=== PATIENT | male | born 1960 | race Caucasian/White ===

== ENCOUNTER 2016-07-08 15:07 | Emergency (ER) | payer MEDICAID, MEDICARE ==
[~2016-07-08] VITALS: Ht 180.3 cm; Wt 81.6 kg
--- NOTE | 2016-07-08 15:18 | EKG ---
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
--- NOTE | 2016-07-08 15:50 | PHYS DOC ---
Past History Past Medical History: Anxiety, Other Past Surgical History: Other Alcohol Use: None Drug Use: None Adult General Chief Complaint Chief Complaint: CHEST PAIN HPI HPI 55-year-old gentleman presenting to the emergency department after having chest pain this started last night. He had chest pain after using meth yesterday. He denies use of cocaine. His pain is a sharp pain that is worse with deep inspiration and radiates to both arms into his neck. He has a history of having a cardiac catheterization approximately 3 years ago that he reported no balloon or stenting. It is mild to moderate and without alleviating factors. He denies unilateral leg swelling personal or family history blood clotting disorders hemoptysis recent immobilization or surgery. He denies fevers chills or cough. Review of systems is negative for nausea vomiting diaphoresis. All other review of systems is negative unless otherwise noted in history of present illness. Review of Systems Review of Systems SEE ABOVE. Current Medications Current Medications Current Medications Medications (Trade) Dose Ordered Sig/Jodie Start Time Stop Time Status Last Admin Dose Admin Aspirin (Children'S Aspirin) 324 mg 1X ONCE 07/08/16 16:00 07/08/16 16:01 Lorazepam (Ativan) 1 mg 1X ONCE 07/08/16 16:00 07/08/16 16:01 Ondansetron HCl (Zofran) 4 mg 1X ONCE 07/08/16 16:00 07/08/16 16:01 Allergies Allergies Allergies Coded Allergies Type Severity Reaction Last Updated Verified No Known Drug Allergies 07/08/16 No Physical Exam Physical Exam Constitutional: Well developed, well nourished, no acute distress, non-toxic appearance. HENT: Normocephalic, atraumatic, bilateral external ears normal, oropharynx moist, no oral exudates, nose normal. Eyes: PERRLA, EOMI, conjunctiva normal, no discharge. [] Neck: Normal range of motion, no tenderness, supple, no stridor. Cardiovascular:Heart rate regular rhythm, no murmur Lungs & Thorax: Bilateral breath sounds clear to auscultation [] Abdomen: Bowel sounds normal, soft, no tenderness, no masses, no pulsatile masses. Skin: Warm, dry, no erythema, no rash. [] Back: No tenderness, no CVA tenderness. Extremities: No tenderness, no cyanosis, no clubbing, ROM intact, no edema. Neurologic: Alert and oriented X 3, normal motor function, normal sensory function, no focal deficits noted. [] Psychologic: Affect normal, judgement normal, mood normal. [] EKG EKG EKG shows sinus rhythm with a tachycardic rate. His heart rate improved after approximately 10-15 minutes without any intervention down to the mid 80s. Otherwise ST segments are congruent. Not suggestive of ischemia. [] Radiology/Procedures Radiology/Procedures [] Course & Med Decision Making Course & Med Decision Making Pertinent Labs and Imaging studies reviewed. (See chart for details) [] 55-year-old male presenting to the emergency department today with chest pain. Vital signs initially he was mildly tachycardic which improved without intervention. Otherwise unremarkable saturating well. EKG unremarkable. Chest x- ray obtained. Blood work obtained. On reexamination the patient's symptoms had improved significantly. troponin neg. pain present for greater than 6 hours. pain is improved now. The patient was then discharged home in stable condition to follow up with their primary care physician over the next 2-3 days. They were to return if their symptoms worsened or if they were concerned for any reason. [id number] discharge instructions and return precautions were given. Patient's questions were answered to their satisfaction. Patient is comfortable plan. heart score 2. Dragon Disclaimer Dragon Disclaimer This chart was dictated in whole or in part using Voice Recognition software in a busy, high-work load, and often noisy Emergency Department environment. It may contain unintended and wholly unrecognized errors or omissions. Departure Departure: Impression: Primary Impression: Chest pain Additional Impression: Substance abuse Referrals: PCP,NO (PCP) MAYRA QUIJANO MD Patient Instructions: Chest Pain (Nonspecific), Substance Abuse-Brief Additional Instructions: Thank you for allowing us to participate in your care today. Followup with your primary care physician in 3 days if your symptoms do not improve. If you do not have a primary care provider you can ask for a list of our primary care providers. Return to the emergency department you have any new or concerning findings. This should be evaluated by the primary care physician and any necessary consulting services for continued management within a few days after discharge. Return to emergency room if you have any new or concerning symptoms including but not limited to fever, chills, nausea, vomiting, intractable pain, any new rashes, chest pain, shortness of air, uncontrolled bleeding, difficulty breathing, and/or vision loss. Problem Qualifiers DAOLFO NICHOLE MD July 08, 2016 15:50
[2016-07-08 15:51] LABS: BASO # 0.1 x10^3/uL (0.0-0.2); BASO % 1 % (0-3); EOS # 0.3 x10^3/uL (0.0-0.7); EOS % 3 % (0-3); HEMATOCRIT 47.2 % (39.0-53.0); LYMPH # 2.7 x10^3/uL (1.0-4.8); LYMPH % 24 % (24-48); MEAN CORPUSCULAR HEMOGLOBIN 30 pg (25-35); MEAN CORPUSCULAR HGB CONC 34 g/dL (31-37); MEAN CORPUSCULAR VOLUME 88 fL (79-100); MONO # 0.7 x10^3/uL (0.0-1.1); MONO % 7 % (0-9); NEUT # 7.6 x10^3uL (1.8-7.7); NEUT % 66 % (31-73); PLATELET COUNT 308 x10^3/uL (140-400); RED BLOOD COUNT 5.36 x10^6/uL (4.30-5.70); RED CELL DISTRIBUTION WIDTH 13.2 % (11.5-14.5); WHITE BLOOD COUNT 11.5 x10^3/uL (4.0-11.0)
[2016-07-08] MEDS ORDERED: ASPIRIN 81 MG TAB.CHEW PO ONE (16:00)
[2016-07-08] MEDS ORDERED: LORazepam 1 MG TABLET PO ONE (16:00)
[2016-07-08] MEDS ORDERED: ONDANSETRON PF 4 MG/2 ML VIAL. IV ONE (16:00)
--- NOTE | 2016-07-08 16:01 | RAD ---
Indication: Chest pain and shortness of air. Time of exam 1543 hours. No prior studies are available for comparison. FINDINGS: The heart size is normal. The lungs are clear. No pleural effusion or pneumothorax is identified. The pulmonary vascularity is normal. IMPRESSION: No acute abnormality detected.
[2016-07-08 16:05] LABS: CALCIUM 9.2 mg/dL (8.5-10.1); CREATININE 1.6 mg/dL (0.7-1.3); DIRECT BILIRUBIN 0.2 mg/dL (0.0-0.2); GFR 45.4; POTASSIUM 4.2 mmol/L (3.5-5.1); TOTAL BILIRUBIN 1.6 mg/dL (0.2-1.0); TOTAL PROTEIN 8.1 g/dL (6.4-8.2)
[2016-07-08 16:55] VITALS: BP 130/83
== END 2016-07-08 16:55 | disposition home or self-care (01) ==
LOC: ER 15:07
DX: R07.9 Chest pain, unspecified (principal); F19.10 Other psychoactive substance abuse, uncomplicated; F41.9 Anxiety disorder, unspecified
CPT/HCPCS: 36415; 71010; 80048; 80076; 83690; 84484; 85027; 93005; 96374; 99285; J2405

== ENCOUNTER 2017-01-11 17:19 | Emergency (ER) | payer MEDICARE, MEDICAID ==
[~2017-01-11] VITALS: Ht 177.8 cm; Wt 86.2 kg
[2017-01-11 17:54] VITALS: BP 127/94
[2017-01-11] MEDS ORDERED: SULF1TAB24 PO (18:36)
[2017-01-11] MEDS ORDERED: CEPH-264 PO (18:36)
--- NOTE | 2017-01-11 18:36 | PHYS DOC ---
Past History Past Medical History: Anxiety, Other Past Surgical History: Other Alcohol Use: None Drug Use: None Adult General Chief Complaint Chief Complaint: WOUND CHECK HPI HPI Patient is a 56 year old male who presents with complaint of a sore to the end of his right lower extremity at his stump. Patient has had history of right lower extremity amputation. Patient states that he has not had a proper fitting for his artificial limb in several months. Patient states that he originally lived in [place], [place] but states he recently moved to [place], [place] and states that he does not currently have a primary care doctor. Patient states that his sore has been present over the past 2 weeks due to rubbing of his artificial limb. Patient states however over the past 2 days he has noticed increasing redness and pain to the affected area. Patient denies any fevers or any other somatic symptoms. Patient was concerned about the changes and came to the emergency department to have this evaluated. Review of Systems Review of Systems Constitutional: Denies fever or chills [] Eyes: Denies change in visual acuity, redness, or eye pain [] HENT: Denies nasal congestion or sore throat [] Respiratory: Denies cough or shortness of breath [] Cardiovascular: Denies chest pain or edema[] GI: Denies abdominal pain, nausea, vomiting, bloody stools or diarrhea [] : Denies dysuria or hematuria [] Musculoskeletal: Pain and swelling at right stump site[] Integument: Erythema and swelling to right lower extremity stump site[] Neurologic: Denies headache, focal weakness or sensory changes [] All other systems were reviewed and found to be within normal limits, except as documented in this note. Allergies Allergies Allergies Coded Allergies Type Severity Reaction Last Updated Verified No Known Drug Allergies 07/08/16 No Physical Exam Physical Exam Constitutional: Well developed, well nourished, no acute distress, non-toxic appearance. [] HENT: Normocephalic, atraumatic, bilateral external ears normal, oropharynx moist, no oral exudates, nose normal. [] Eyes: PERRLA, EOMI, conjunctiva normal, no discharge. [] Neck: Normal range of motion, no tenderness, supple, no stridor. [] Cardiovascular:Heart rate regular rhythm, no murmur [] Lungs & Thorax: Bilateral breath sounds clear to auscultation [] Abdomen: Bowel sounds normal, soft, no tenderness, no masses, no pulsatile masses. [] Skin: Warm, dry, erythema and induration at right lower extremity stump site. [ ] Back: No tenderness, no CVA tenderness. [] Extremities: Right BKA, 4 cm lesion that is erythematous and indurated, no central fluctuance, mild to moderate tenderness to palpation. [] Neurologic: Alert and oriented X 3, normal motor function, normal sensory function, no focal deficits noted. [] Current Patient Data Vital Signs Vital Signs Date Time Temp Pulse Resp B/P (MAP) Pulse Ox O2 Delivery O2 Flow Rate FiO2 01/11/17 17:54 98.2 101 18 100 Room Air Lab Results Not performed EKG EKG Not performed[] Radiology/Procedures Radiology/Procedures Not performed[] Course & Med Decision Making Course & Med Decision Making Pertinent Labs and Imaging studies reviewed. (See chart for details) Patient has evidence of mild cellulitic change at the right stump site. Patient started on Bactrim and Keflex in the emergency department. The patient will continue on 10 day course of antibiotics for treatment. The patient's lesions were dressed with gauze by the emergency department nurse to help offer padding for the patient's artificial limb. Patient was referred to family practice for follow-up in 5-7 days. Advised return emergency department for any worsening symptoms. Patient voiced understanding and in agreement with treatment plan. Dragon Disclaimer Dragon Disclaimer This electronic medical record was generated, in whole or in part, using a voice recognition dictation system. Departure Departure: Impression: Primary Impression: Cellulitis of right lower extremity Disposition: 01 HOME, SELF-CARE Condition: IMPROVED Referrals: PCPDIMITRI (PCP) Patient Instructions: Cellulitis Additional Instructions: Follow-up in 5-7 days with her primary doctor for reevaluation. Return to the emergency department for any worsening symptoms. Scripts Sulfamethoxazole/Trimethoprim (BACTRIM DS TABLET) 1 Each Tablet 1 TAB PO BID, #20 TAB Prov: BE RICO MD 01/11/17 Cephalexin (KEFLEX) 500 Mg Capsule 1 CAP PO TID, #30 CAP Prov: BE RICO MD 01/11/17 BE RICO MD Jan 11, 2017 18:36
[2017-01-11] MEDS ORDERED: SMZ/TMP 800/160MG TABLET. PO ONE (18:45)
[2017-01-11] MEDS ORDERED: CEPHALEXIN 250 MG CAPSULE PO ONE (18:45)
== END 2017-01-11 18:50 | disposition home or self-care (01) ==
LOC: ER 17:19
DX: L53.8 Other specified erythematous conditions (principal); L03.115 Cellulitis of right lower limb; F41.9 Anxiety disorder, unspecified; Z89.611 Acquired absence of right leg above knee
CPT/HCPCS: 99283

== ENCOUNTER 2019-03-12 23:00 | Emergency (ER) | payer MEDICARE, OTHER ==
[~2019-03-12] VITALS: Ht 177.8 cm; Wt 95.3 kg
[~2019-03-12 23:00] MED LIST: CEPH-264 PO; SULF1TAB24 PO
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
[2019-03-12 23:06] VITALS: BP 165/94
[2019-03-12] MEDS ORDERED: HYDROcodon/IBUPROFEN 7.5/200MG 1 TAB TABLET PO ONE (23:30)
[2019-03-12] MEDS ORDERED: CEPHALEXIN 250 MG CAPSULE PO ONE (23:30)
[2019-03-12] MEDS ORDERED: LIDOCAINE 2% 20 ML VIAL. IJ ONE (23:30)
[2019-03-12] MEDS ORDERED: DIPHTH,PERTUSS(ACELL),TET TOX 0.5 ML DISP.SYRIN. VAX IM ONE (23:45)
[2019-03-12] MEDS ORDERED: LIDOCAINE 1% Multi-Dose 20 ML VIAL. ONE (23:46)
[2019-03-13] MEDS ORDERED: cefTRIAXone IM 1 GM VIAL IM ONE
[2019-03-13] MEDS ORDERED: CEPH-264 PO (00:10)
[2019-03-13] MEDS ORDERED: BUPIVACAINE MPF 0.5% 30 ML VIAL. SQ ONE (00:15)
[2019-03-13] MEDS ORDERED: ASPIRIN 325 MG TABLET ONE (00:15)
[2019-03-13] MEDS ORDERED: ASPIRIN 325 MG TABLET PO ONE (00:15)
== END 2019-03-13 00:21 | disposition home or self-care (01) ==
LOC: ER 23:00
DX: S61.210A Laceration without foreign body of right index finger without damage to nail, initial encounter (principal); F17.210 Nicotine dependence, cigarettes, uncomplicated; F41.9 Anxiety disorder, unspecified; W18.49XA Other slipping, tripping and stumbling without falling, initial encounter; Y93.89 Activity, other specified; Y92.89 Other specified places as the place of occurrence of the external cause; Y99.8 Other external cause status
CPT/HCPCS: 12002; 90471; 90715; 96372; 99284; J0696; J3490; J2001

== ENCOUNTER 2019-03-20 15:13 | Emergency (ER) | payer MEDICARE, OTHER ==
[~2019-03-20] VITALS: Ht 177.8 cm; Wt 95.3 kg
[2019-03-20 15:13] VITALS: BP 143/94
[2019-03-20] MEDS ORDERED: SULF1TAB24 PO (15:53)
[2019-03-20] MEDS ORDERED: HYDR-3165 PO (15:53)
--- NOTE | 2019-03-20 15:54 | PHYS DOC ---
Past History Past Medical History: Anxiety, Hypertension, Other Additional Past Medical Histor: right prosthetic Past Surgical History: Other Additional Past Surgical Histo: right BKA, 2 blow out nose fractures Smoking: Cigarettes Alcohol Use: Occasionally Drug Use: Marijuana Adult General Chief Complaint Chief Complaint: FINGER INJURY [facility] HPI Patient is a 58-year-old male who presents with report of pain in his right index finger. Patient was seen here about a week ago for same complaint and was washed out and stitched up for an open fracture to his finger. Patient was supposed to follow up with hand surgeon but he states that he did not do so because this was hospitalized. Patient is concerned about possibility of developing infection. Patient was prescribed Augmentin recently but he has not yet filled the prescription. He denies any fever.[] Review of Systems Review of Systems Constitutional: Denies fever or chills [] Respiratory: Denies cough or shortness of breath [] Cardiovascular: No additional information not addressed in HPI [] Musculoskeletal: Positive right index finger pain [] Integument: Denies rash or skin lesions [] Current Medications Current Medications Current Medications Medications (Trade) Dose Ordered Sig/Jodie Start Time Stop Time Status Last Admin Dose Admin Acetaminophen/ Hydrocodone Bitart (Lortab 7.5/325) 1 tab 1X ONCE 03/20/19 15:45 03/20/19 15:46 UNV Cefazolin Sodium (Ancef Im) 1 gm 1X ONCE 03/20/19 15:45 03/20/19 15:46 UNV Allergies Allergies Allergies Coded Allergies Type Severity Reaction Last Updated Verified codeine Adverse Reaction Intermediate Nausea and Vomiting 03/12/19 Yes Physical Exam Physical Exam Constitutional: Well developed, well nourished, no acute distress, non-toxic appearance. [] Cardiovascular:Heart rate regular rhythm, no murmur [] Lungs & Thorax: Bilateral breath sounds clear to auscultation [] Extremities: Right index finger demonstrates moderate soft tissue swelling. There is no redness or other secondary signs of infection. [] Neurologic: Alert and oriented X 3, no focal deficits noted. [] EKG EKG [] Radiology/Procedures Radiology/Procedures [] Course & Med Decision Making Course & Med Decision Making Pertinent Labs and Imaging studies reviewed. (See chart for details) [] Dragon Disclaimer Dragon Disclaimer This electronic medical record was generated, in whole or in part, using a voice recognition dictation system. Departure Departure: Impression: Primary Impression: Encounter for wound re-check Disposition: 01 HOME, SELF-CARE Condition: STABLE Referrals: ASHU HERNÁNDEZ (PCP) Patient Instructions: Wound Check Additional Instructions: Follow-up with hand surgeon as previously instructed and take antibiotics as directed. Scripts Hydrocodone Bit/Acetaminophen (NORCO 5-325 TABLET) 1 Each Tablet 1 TAB PO PRN Q6HRS PRN for PAIN, #12 TAB 0 Refills Prov: TAYLOR GUY Jr. DO 03/20/19 Sulfamethoxazole/Trimethoprim (BACTRIM DS TABLET) 1 Each Tablet 1 TAB PO BID for infection for 10 Days, #20 TAB 0 Refills Prov: TAYLOR GUY Jr. DO 03/20/19 TAYLOR GUY Jr. DO Mar 20, 2019 15:53
[2019-03-20] MEDS ORDERED: ceFAZolin IM 1 GM VIAL IM ONE (16:00)
[2019-03-20] MEDS ORDERED: HYDROcodone/APAP 7.5/325MG 1 TAB TABLET PO ONE (16:00)
== END 2019-03-20 16:23 | disposition home or self-care (01) ==
LOC: ER 15:13
DX: M25.541 Pain in joints of right hand (principal); Z88.6 Allergy status to analgesic agent; I10 Essential (primary) hypertension; F17.210 Nicotine dependence, cigarettes, uncomplicated; Z48.01 Encounter for change or removal of surgical wound dressing
CPT/HCPCS: 96372; 99283; J0690

== ENCOUNTER 2019-03-23 13:53 | Emergency (ER) | payer MEDICARE, OTHER ==
[~2019-03-23] VITALS: Ht 177.8 cm; Wt 95.3 kg
[~2019-03-23 13:53] MED LIST changes: +HYDR-3165 PO
[2019-03-23 14:08] VITALS: BP 156/69
[2019-03-23] MEDS ORDERED: IV NORMAL SALINE 1,000ML 1,000 ML IV ONE (14:30)
[2019-03-23] MEDS ORDERED: AMPICILLIN/SULBACTAM 3 GM in IV NORMAL SALINE 100ML 100 ML IV ONE (14:45)
[2019-03-23 14:58] LABS: BASO # 0.1 x10^3/uL (0.0-0.2); BASO % 1 % (0-3); EOS # 0.9 x10^3/uL (0.0-0.7); EOS % 10 % (0-3); HEMATOCRIT 44.7 % (39.0-53.0); HEMOGLOBIN 14.6 g/dL (13.0-17.5); LYMPH # 2.4 x10^3/uL (1.0-4.8); LYMPH % 28 % (24-48); MEAN CORPUSCULAR HEMOGLOBIN 29 pg (25-35); MEAN CORPUSCULAR HGB CONC 33 g/dL (31-37); MEAN CORPUSCULAR VOLUME 89 fL (79-100); MONO # 0.5 x10^3/uL (0.0-1.1); MONO % 6 % (0-9); NEUT % 56 % (31-73); PLATELET COUNT 313 x10^3/uL (140-400); RED CELL DISTRIBUTION WIDTH 13.6 % (11.5-14.5); WHITE BLOOD COUNT 8.9 x10^3/uL (4.0-11.0)
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
[2019-03-23 15:08] LABS: CALCIUM 8.5 mg/dL (8.5-10.1); CREATININE 1.4 mg/dL (0.7-1.3); GFR 52.4; POTASSIUM 3.8 mmol/L (3.5-5.1)
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
== END 2019-03-23 15:35 | disposition home or self-care (01) ==
LOC: ER 13:53
DX: S62.620A Displaced fracture of middle phalanx of right index finger, initial encounter for closed fracture (principal); I10 Essential (primary) hypertension; F17.210 Nicotine dependence, cigarettes, uncomplicated; Z88.5 Allergy status to narcotic agent; Y04.1XXA Assault by human bite, initial encounter; Y93.89 Activity, other specified; Y92.89 Other specified places as the place of occurrence of the external cause; Y99.8 Other external cause status
CPT/HCPCS: 36415; 73130; 80048; 83605; 85025; 87040; 96365; 99285; J0295; J7030

== ENCOUNTER 2019-11-07 17:28 | Emergency (ER) | payer OTHER ==
[~2019-11-07] VITALS: Ht 177.8 cm; Wt 97.8 kg
[2019-11-07] MEDS ORDERED: IV NORMAL SALINE 1,000ML 1,000 ML IV SCH (18:20)
--- NOTE | 2019-11-07 18:23 | PHYS DOC ---
Past History Past Medical History: Anxiety, Hypertension, Other Additional Past Medical Histor: right leg prosthetic Past Surgical History: Other Additional Past Surgical Histo: right BKA, 2 blow out nose fractures Smoking: Cigarettes Alcohol Use: Occasionally Drug Use: Marijuana Adult General Chief Complaint Chief Complaint: FLANK PAIN [facility] HPI Patient is a 59-year-old male who presents for left flank pain. Onset was 3 days ago without any known inciting event or trauma. Nothing known makes better, ambulation, palpating left flank, and certain body movements make worse. Patient describes a 8/10 in severity sharp pain that radiates from left lower back to his left superior groin. Associated symptoms include mild headache from pain, nausea, and dysuria. Patient denies any fever, COVID-19 contacts, URI- like symptoms, chest pain, shortness of breath, changes in bowel function or ally blood loss in bladder or stool. Patient has no history of kidney stones, no history of illicit drug abuse. He discloses that he has right lower extremity prosthetic, states his right BKA stump is currently being treated with a 10-day course of doxycycline Review of Systems Review of Systems Fourteen body systems of review of systems have been reviewed. See HPI for pertinent positives and negative responses, other hope all other systems are negative, non-pertinent or non-contributory Allergies Allergies Allergies Coded Allergies Type Severity Reaction Last Updated Verified codeine Adverse Reaction Intermediate Nausea and Vomiting 03/12/19 Yes Physical Exam Physical Exam Constitutional: Well developed, well nourished, no acute distress, non-toxic appearance. [] HENT: Normocephalic, atraumatic, bilateral external ears normal, oropharynx moist, no oral exudates, nose normal. [] Eyes: PERRLA, EOMI, conjunctiva normal, no discharge. [] Neck: Normal range of motion, no tenderness, supple, no stridor. [] Cardiovascular:Heart rate regular rhythm, no murmur [] Lungs & Thorax: Bilateral breath sounds clear to auscultation [] Abdomen: Bowel sounds normal, soft, no tenderness, no masses, no pulsatile masses. [] Skin: Warm, dry, no erythema, no rash. [] Back: No tenderness, no CVA tenderness. [] Extremities: No tenderness, no cyanosis, no clubbing, ROM intact, no edema. [] Neurologic: Alert and oriented X 3, normal motor function, normal sensory function, no focal deficits noted. [] Psychologic: Affect normal, judgement normal, mood normal. [] Current Patient Data Vital Signs Vital Signs Date Time Temp Pulse Resp B/P (MAP) Pulse Ox O2 Delivery O2 Flow Rate FiO2 11/07/19 18:50 74 20 117/74 (88) 97 Room Air 11/07/19 17:50 97.9 Lab Results Laboratory Tests Test 11/07/19 18:10 11/07/19 18:30 Urine Collection Type Unknown Urine Color Yellow Urine Clarity Clear Urine pH 7.5 Urine Specific [place] 1.020 Urine Protein Neg (NEG-TRACE) Urine Glucose (UA) Neg mg/dL (NEG) Urine Ketones (Stick) Neg mg/dL (NEG) Urine Blood Neg (NEG) Urine Nitrite Neg (NEG) Urine Bilirubin Neg (NEG) Urine Urobilinogen Dipstick 0.2 mg/dL (0.2 mg/dL) Urine Leukocyte Esterase Neg (NEG) Urine RBC 1-2 /HPF (0-2) Urine WBC 1-4 /HPF (0-4) Urine Squamous Epithelial Cells Few /LPF Urine Bacteria 0 /HPF (0-FEW) Urine Mucus Slight /LPF White Blood Count 7.3 x10^3/uL (4.0-11.0) Red Blood Count 5.28 x10^6/uL (4.30-5.70) Hemoglobin 15.6 g/dL (13.0-17.5) Hematocrit 48.3 % (39.0-53.0) Mean Corpuscular Volume 92 fL (79-100) Mean Corpuscular Hemoglobin 30 pg (25-35) Mean Corpuscular Hemoglobin Concent 32 g/dL (31-37) Red Cell Distribution Width 14.0 % (11.5-14.5) Platelet Count 207 x10^3/uL (140-400) Neutrophils (%) (Auto) 35 % (31-73) Lymphocytes (%) (Auto) 41 % (24-48) Monocytes (%) (Auto) 8 % (0-9) Eosinophils (%) (Auto) 17 % (0-3) Basophils (%) (Auto) 1 % (0-3) Neutrophils # (Auto) 2.5 x10^3uL (1.8-7.7) Lymphocytes # (Auto) 3.0 x10^3/uL (1.0-4.8) Monocytes # (Auto) 0.6 x10^3/uL (0.0-1.1) Eosinophils # (Auto) 1.2 x10^3/uL (0.0-0.7) Basophils # (Auto) 0.0 x10^3/uL (0.0-0.2) Segmented Neutrophils % 38 % (35-66) Band Neutrophils % 1 % (0-9) Lymphocytes % 37 % (24-48) Monocytes % 8 % (0-10) Eosinophils % 14 % (0-5) Basophils % 2 % (0-3) Platelet Estimate Adequate (ADEQUATE) Sodium Level 138 mmol/L (136-145) Potassium Level 3.8 mmol/L (3.5-5.1) Chloride Level 103 mmol/L (98-107) Carbon Dioxide Level 28 mmol/L (21-32) Anion Gap 7 (6-14) Blood Urea Nitrogen 26 mg/dL (8-26) Creatinine 1.4 mg/dL (0.7-1.3) Estimated GFR (Cockcroft-Gault) 52.2 BUN/Creatinine Ratio 19 (6-20) Glucose Level 130 mg/dL (70-99) Calcium Level 9.0 mg/dL (8.5-10.1) Total Bilirubin 0.5 mg/dL (0.2-1.0) Aspartate Amino Transf (AST/SGOT) 20 U/L (15-37) Alanine Aminotransferase (ALT/SGPT) 25 U/L (16-63) Alkaline Phosphatase 83 U/L (46-116) Troponin I Quantitative < 0.017 ng/mL (0-0.055) Total Protein 7.3 g/dL (6.4-8.2) Albumin 3.4 g/dL (3.4-5.0) Albumin/Globulin Ratio 0.9 (1.0-1.7) Lipase 392 U/L (73-393) EKG EKG EKG ordered and interpreted by myself at 2003 hrs. as sinus rhythm at 69 bpm, unremarkable intervals, no axis deviation, no acute ischemic findings, no STEMI Radiology/Procedures Radiology/Procedures PROCEDURE: CT ABD PELV W/ IV CONTRST ONLY CT SCAN OF THE ABDOMEN AND PELVIS WITH IV CONTRAST. History: Reason: Lt flank pain / Spl. Instructions: / History: Comparison:None. Procedure: Contiguous axial images of the abdomen and pelvis were performed after the administration of 75 cc of Isovue 370 IV contrast. Oral contrast: No. Findings: The appendix is normal. The gallbladder is collapsed and not well evaluated. There is formed stool scattered the colon. There is fat within an inguinal canal hernia on the left. The prostate is not significantly enlarged. Liver: Small cyst posteriorly Spleen: Unremarkable Pancreas: Unremarkable Adrenal Glands: Unremarkable Kidneys: Multiple cysts in the left kidney There is no mass or lymphadenopathy. There is no free air. There is no free fluid. The urinary bladder appears normal. Impression: Constipation. End impression PQRS Compliance Statement: One or more of the following individualized dose reduction techniques were utilized for this examination: 1. Automated exposure control 2. Adjustment of the mA and/or kV according to patient size 3. Use of iterative reconstruction technique Electronically signed by: Alfredo Grey III, MD (11/07/2019 7:41 PM) [facility] Course & Med Decision Making Course & Med Decision Making Patient seen on immediate ER arrival ABCs grossly non-concerning Comprehensive history and physical exam performed, subsequent diagnostic studies ordered IV access obtained and 1 L of normal saline and 30 mg IV Toradol administered with moderate relief in symptoms Discussed ER visit, physical findings and diagnostic work-up indicating most likely diagnosis of constipation After recall, patient reports he has been more constipated than usual recently, denies any daily narcotic pain medications or other constipating medications for that matter I also discussed this may be an acute presentation of more concerning pathology for which patient also understood Ultimately, patient was comfortable with discharging home with continued supportive care and instructions on how to stimulate bowels with increased p.o. fluid intake and fiber supplementation etc. Strict return precautions were discussed with good understanding by patient, all questions and concerns addressed prior to ER departure in stable condition with close PCP follow-up advised in upcoming 3 to 7 days Elaina Disclaimer Dragon Disclaimer This electronic medical record was generated, in whole or in part, using a voice recognition dictation system. Departure Departure: Impression: Primary Impression: Flank pain Additional Impression: Constipation Disposition: HOME/RESIDENCE PRIOR TO ADM Condition: STABLE Referrals: ASHU HERNÁNDEZ (PCP) Patient Instructions: Constipation, Adult Justification of Admission: Justification of Admission: Justification of Admission Dx: N/A Problem Qualifiers JUAQUIN FRANCIS DO Nov 07, 2019 18:23
[2019-11-07] MEDS ORDERED: IOHEXOL 300 MG/ML 75 ML VIAL. IV ONE (18:45)
[2019-11-07 18:51] LABS: BACTERIA,URINE 0 /HPF (0-FEW); BILIRUBIN,URINE NEG (NEG); CLARITY,URINE CLEAR; COLOR,URINE YELLOW; GLUCOSE,URINE NEG (NEG); NITRITE,URINE NEG (NEG); SQUAMOUS EPITHELIAL CELL,UR FEW /LPF; UROBILINOGEN,URINE 0.2 mg/dL (0.2 mg/dL)
[2019-11-07 18:56] LABS: BASO % 1 % (0-3); EOS # 1.2 x10^3/uL (0.0-0.7); EOS % 17 % (0-3); HEMATOCRIT 48.3 % (39.0-53.0); HEMOGLOBIN 15.6 g/dL (13.0-17.5); LYMPH % 41 % (24-48); MEAN CORPUSCULAR HEMOGLOBIN 30 pg (25-35); MEAN CORPUSCULAR HGB CONC 32 g/dL (31-37); MEAN CORPUSCULAR VOLUME 92 fL (79-100); MONO # 0.6 x10^3/uL (0.0-1.1); MONO % 8 % (0-9); NEUT # 2.5 x10^3uL (1.8-7.7); NEUT % 35 % (31-73); PLATELET COUNT 207 x10^3/uL (140-400); RED BLOOD COUNT 5.28 x10^6/uL (4.30-5.70); WHITE BLOOD COUNT 7.3 x10^3/uL (4.0-11.0)
[2019-11-07] MEDS ORDERED: KETOROLAC 30 MG/ML VIAL. IVP ONE (19:00)
[2019-11-07 19:01] LABS: CREATININE 1.4 mg/dL (0.7-1.3); GFR 52.2; POTASSIUM 3.8 mmol/L (3.5-5.1)
[2019-11-07 19:09] LABS: ALBUMIN 3.4 g/dL (3.4-5.0); ALBUMIN/GLOBULIN RATIO 0.9 (1.0-1.7); TOTAL BILIRUBIN 0.5 mg/dL (0.2-1.0); TOTAL PROTEIN 7.3 g/dL (6.4-8.2)
[2019-11-07 19:31] LABS: % BANDS 1 % (0-9); % BASOS 2 % (0-3); % EOS 14 % (0-5); % LYMPHS 37 % (24-48); % MONOS 8 % (0-10); % SEGS 38 % (35-66); PLT ESTIMATE ADEQUATE (ADEQUATE)
--- NOTE | 2019-11-07 19:43 | RAD ---
CT SCAN OF THE ABDOMEN AND PELVIS WITH IV CONTRAST. History: Reason: Lt flank pain / Spl. Instructions: / History: Comparison:None. Procedure: Contiguous axial images of the abdomen and pelvis were performed after the administration of 75 cc of Isovue 370 IV contrast. Oral contrast: No. Findings: The appendix is normal. The gallbladder is collapsed and not well evaluated. There is formed stool scattered the colon. There is fat within an inguinal canal hernia on the left. The prostate is not significantly enlarged. Liver: Small cyst posteriorly Spleen: Unremarkable Pancreas: Unremarkable Adrenal Glands: Unremarkable Kidneys: Multiple cysts in the left kidney There is no mass or lymphadenopathy. There is no free air. There is no free fluid. The urinary bladder appears normal. Impression: Constipation. End impression PQRS Compliance Statement: One or more of the following individualized dose reduction techniques were utilized for this examination: 1. Automated exposure control 2. Adjustment of the mA and/or kV according to patient size 3. Use of iterative reconstruction technique Electronically signed by: Alfredo Grey III, MD (11/07/2019 7:41 PM) [facility]
[2019-11-07 20:22] VITALS: BP 114/66
--- NOTE | 2019-11-08 08:28 | EKG ---
[address] [address] Test Date: 2019-11-07 Test Time: 20:02:45 Pat Name: CORBY [place] Department: Room: Gender: M [employer] Clerk: : 1960 Requested By: JUAQUIN FRANCIS Order Number: [id number] Reading MD: Measurements Intervals [place] Rate: 69 P: 41 WI: 134 QRS: 53 QRSD: 84 T: 27 QT: 388 QTc: 417 Interpretive Statements SINUS RHYTHM LOW LIMB LEAD VOLTAGE NO SPECIFIC ECG ABNORMALITIES RI6.02 No previous ECG available for comparison
== END 2019-11-07 20:25 | disposition home or self-care (01) ==
LOC: ER 17:28
DX: K59.00 Constipation, unspecified (principal); R51 Headache; R30.0 Dysuria; I10 Essential (primary) hypertension; F41.9 Anxiety disorder, unspecified; F17.210 Nicotine dependence, cigarettes, uncomplicated; Z89.511 Acquired absence of right leg below knee; Z88.5 Allergy status to narcotic agent
CPT/HCPCS: 36415; 74177; 80053; 81001; 83690; 84484; 85007; 85025; 93005; 96361; 96374; 99285; J1885; J7030

== ENCOUNTER 2020-07-28 19:46 | Emergency (ER) | payer MEDICARE, OTHER ==
[~2020-07-28] VITALS: Ht 177.8 cm; Wt 103.6 kg
--- NOTE | 2020-07-28 19:51 | PHYS DOC ---
Past History Past Medical History: Anxiety, Hypertension, Other Additional Past Medical Histor: right leg prosthetic, RLS Past Surgical History: Other Additional Past Surgical Histo: right BKA, 2 blow out nose fractures Smoking: Cigarettes Alcohol Use: None Drug Use: Marijuana General Adult EDM: Chief Complaint: CHEST PAIN HPI: HPI: ".. Maybe some chest pain..".." I need to be here and not in [facility] tonight. " Patient is a 59 year old male who presents with above hx of decreased level of consciousness and complaints of chest pain. Pt. currently in police custody for alleged stealing a car from [employer]. Patient has a history of polysubstance abuse, and currently appears to be under the influence of intoxicants.. Patient very nondescript about his chest pain complaints. Chest pain started after he was taken to the police department and booked on auto theft charges. Patient does smoke tobacco and marijuana. Patient does have a history of migraine headache. Patient denies previous history of cardiac disorder. Does have a history of hypertension. Patient has a below the knee right amputation. Patient has history of regional lower limb pain complaints of loss Rt. limb. Review of Systems: Review of Systems: Constitutional: Denies fever or chills Eyes: Denies change in visual acuity HENT: Denies nasal congestion or sore throat Respiratory: Denies cough or shortness of breath Cardiovascular: May be some chest pain GI: Denies abdominal pain, nausea, vomiting, bloody stools or diarrhea : Denies dysuria Musculoskeletal: Denies back pain or joint pain Integument: Denies rash Neurologic: Denies headache, focal weakness or sensory changes Endocrine: Denies polyuria or polydipsia Lymphatic: Denies swollen glands Psychiatric: Denies depression or anxiety Family History: Family History: Patient declined Current Medications: Current Meds: See nursing for home meds Allergies: Allergies: Allergies Coded Allergies Type Severity Reaction Last Updated Verified codeine Adverse Reaction Intermediate Nausea and Vomiting 03/12/19 Yes Physical Exam: PE: Constitutional: , no acute distress, appears of the influence of drugs intoxicated in appearance. [] HENT: Normocephalic, atraumatic, bilateral external ears normal, oropharynx moist, no oral exudates, nose normal. [] Eyes: PERRLA, EOMI, conjunctiva normal, no discharge. [] Neck: Normal range of motion, no tenderness, supple, no stridor. [] Cardiovascular:Heart rate regular rhythm, no murmur [] PMI slightly to the left Lungs & Thorax: Bilateral breath sounds equal apex with scattered wheezes au scultation. Does have decreased breath sounds at right base and some crackles Abdomen: Bowel sounds normal, soft, no tenderness, no masses, no pulsatile masses. Old surgical scar Skin: Warm, dry, no erythema, no rash. Multiple tattoos Back: No tenderness, no CVA tenderness. [] Extremities: Complains of right lower leg pain ( in amputated area), no cyanosis, no clubbing, ROM intact, no edema. Amputation right leg below knee Amputation right leg Neurologic: Alert and oriented X 3, but appears to be under the influence of intoxicants, will move all extremities on request, does have distal sensory, no focal deficits noted. [] Psychologic: Affect flat , judgement impaired, mood depressed no suicidal ideation or hallucinations. Patient denies alcohol use. EKG: EKG: My interpretation EKG shows a sinus rhythm at 87 bpm no acute morphology appreciated. [] Radiology/Procedures: Radiology/Procedures: [address] [place] [id number] IMAGING REPORT Signed PATIENT: CORBY [place] ACCOUNT: [id number] : 1960 LOCATION: ER AGE: 59 SEX: M EXAM STATUS: REG ER ORD. PHYSICIAN: DARYA COOPER MD REASON: cp PROCEDURE: PORTABLE CHEST 1V XR CHEST 1V CLINICAL INDICATIONS: Chest pain COMPARISON: July 08, 2016. Findings: There is new finding of elevation of the right hemidiaphragm. No acute lung infiltrate or pleural effusion or pulmonary edema or lung mass or pneumothorax is seen. The heart size, pulmonary vasculature, mediastinum and both tavia are stable. IMPRESSION: New finding of elevation of the right hemidiaphragm. This could be due to splinting or could be related to phrenic nerve paresis. Electronically signed by: Fracisco Vazquez MD (07/28/2020 9:33 PM) [id number] DICTATED AND SIGNED BY: FRACISCO VAZQUEZ MD DATE: 07/28/202130 CC: DARYA COOPER MD; ASHU HERNÁNDEZ ~MTH0 0 [[address] [address] IMAGING REPORT Signed PATIENT: CORBY [place] ACCOUNT: [id number] : 1960 LOCATION: ER AGE: 59 SEX: M EXAM STATUS: REG ER ORD. PHYSICIAN: DARYA COOPER MD REASON: Pain PROCEDURE: CT HEAD AND CERVICAL SPINE WO CT Head W/O Contrast: History: Reason: Pain / Spl. Instructions: / History: Comparison: none Axial images were obtained without contrast. The giang and white matter appears normal and symmetrical for the patients age. There is no mass effect, extraaxial fluid collections or hydrocephalus. There is no gross bleed. There is no focal loss of giang-white matter distinction to suggest acute ischemia, i.e. stroke. Impression: No acute findings. End impression CT C-Spine without contrast: Clinical History: Reason: Pain / Spl. Instructions: / History: Technique: Axial helical images of the cervical spine were obtained without contrast, axial coronal and sagittal reconstruction was performed. Findings: There is no loss of vertebral body stature. There is no prevertebral soft tissue swelling. The vertebral bodies are well aligned. The C1-C2 relationship is normal. The visualized osseous structures appear normal. Evaluation of the central canal is limited without contrast. There is multiple posterior disc bulges resulting in flattening of the thecal sac. There does not appear to be gross flattening of the cervical cord. There is moderate to marked narrowing of multiple neuroforamen. Impression: No acute findings. Clinical correlation suggested. PQRS Compliance Statement: One or more of the following individualized dose reduction techniques were utilized for this examination: 1. Automated exposure control 2. Adjustment of the mA and/or kV according to patient size 3. Use of iterative reconstruction technique Electronically signed by: Dann Gibbons III, MD (07/28/2020 9:18 PM) [facility] DICTATED AND SIGNED BY: DANN GIBBONS III, MD DATE: 07/28/202110 CC: DARYA COOPER MD; ASHU HERNÁNDEZ ~MTH0 0 ][address] [place] [address] IMAGING REPORT Signed PATIENT: CORBY [place] ACCOUNT: [id number] : 1960 LOCATION: ER AGE: 59 SEX: M EXAM STATUS: REG ER ORD. PHYSICIAN: DARYA COOPER MD REASON: pain- amputation PROCEDURE: KNEE RIGHT 3V Three-view right knee study Clinical indications: Right knee pain. History of amputation. FINDINGS: A below the knee amputation is evident. No lytic process or acute fracture or dislocation is seen. IMPRESSION: No acute osseous abnormality. Electronically signed by: Fracisco Vazquez MD (07/28/2020 9:34 PM) [id number] DICTATED AND SIGNED BY: FRACISCO VAZQUEZ MD DATE: 07/28/202132 CC: DARYA COOPER MD; ASHU HERNÁNDEZ PA ~MTH0 0 Heart Score: C/O Chest Pain: Yes HEART Score for Chest Pain: HEART Score for Chest Pain Response (Comments) Value History Slighlty/Non-Suspicious 0 ECG Normal 0 Age >45 - < 65 1 Risk Factors 1 or 2 Risk Factors 1 Troponin < Normal Limit 0 Total 2 Risk Factors: Risk Factors: DM, Current or recent (<one month) smoker, HTN, HLP, family history of CAD, obesity. Risk Scores: Score 0 - 3: 2.5% MACE over next 6 weeks - Discharge Home Score 4 - 6: 20.3% MACE over next 6 weeks - Admit for Clinical Observation Score 7 - 10: 72.7% MACE over next 6 weeks - Early Invasive Strategies Course & Med Decision Making: Course & Med Decision Making Pertinent Labs and Imaging studies reviewed. (See chart for details) Patient takes daily aspirin. Patient follow-up primary care. Consider outpatient stress testing. Advised patient had 2 EKGs which showed no acute STEMI and 2 - troponin testing. Avoid tobacco. Avoid illicit drugs. Return if any concerns. Impression: 1. Hx Polysubstance abuse 2 . Pt. reports " possible "chest pain ( Arrest / [employer] Chest Pain) 3. Below the knee right amputation [] Dragon Disclaimer: Elaina Disclaimer: This electronic medical record was generated, in whole or in part, using a voice recognition dictation system. Departure Departure: Referrals: ASHU HERNÁNDEZ (PCP) Elaina Disclaimer This chart was dictated in whole or in part using Voice Recognition software in a busy, high-work load, and often noisy Emergency Department environment. It may contain unintended and wholly unrecognized errors or omissions. Dragon Disclaimer This chart was dictated in whole or in part using Voice Recognition software in a busy, high-work load, and often noisy Emergency Department environment. It may contain unintended and wholly unrecognized errors or omissions. DARYA COOPER MD July 28, 2020 19:50
[2020-07-28 20:30] LABS: BASO % 1 % (0-3); EOS # 1.3 x10^3/uL (0.0-0.7); EOS % 19 % (0-3); HEMATOCRIT 45.8 % (39.0-53.0); HEMOGLOBIN 15.2 g/dL (13.0-17.5); LYMPH # 1.7 x10^3/uL (1.0-4.8); LYMPH % 26 % (24-48); MEAN CORPUSCULAR HEMOGLOBIN 29 pg (25-35); MEAN CORPUSCULAR HGB CONC 33 g/dL (31-37); MEAN CORPUSCULAR VOLUME 89 fL (79-100); MONO # 0.4 x10^3/uL (0.0-1.1); MONO % 6 % (0-9); NEUT # 3.2 x10^3uL (1.8-7.7); NEUT % 48 % (31-73); PLATELET COUNT 225 x10^3/uL (140-400); RED BLOOD COUNT 5.17 x10^6/uL (4.30-5.70); RED CELL DISTRIBUTION WIDTH 13.9 % (11.5-14.5); WHITE BLOOD COUNT 6.6 x10^3/uL (4.0-11.0)
[2020-07-28] MEDS ORDERED: ASPIRIN CHEWABLE 81 MG TABLET. PO ONE (20:30)
[2020-07-28] MEDS ORDERED: IV RINGERS SOLUTION,LACTATED 1,000 ML IV SCH (20:30)
[2020-07-28 20:43] LABS: CALCIUM 8.4 mg/dL (8.5-10.1); CREATININE 1.3 mg/dL (0.7-1.3); GFR 56.9
[2020-07-28 20:53] LABS: ALBUMIN 3.6 g/dL (3.4-5.0); DIRECT BILIRUBIN 0.1 mg/dL (0.0-0.2); MAGNESIUM 2.2 mg/dL (1.8-2.4); TOTAL BILIRUBIN 0.6 mg/dL (0.2-1.0); TOTAL PROTEIN 7.1 g/dL (6.4-8.2)
[2020-07-28 21:02] LABS: POTASSIUM 3.7 mmol/L (3.5-5.1)
--- NOTE | 2020-07-28 21:12 | EKG ---
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
--- NOTE | 2020-07-28 21:21 | RAD ---
CT Head W/O Contrast: History: Reason: Pain / Spl. Instructions: / History: Comparison: none Axial images were obtained without contrast. The giang and white matter appears normal and symmetrical for the patients age. There is no mass effe ct, extraaxial fluid collections or hydrocephalus. There is no gross bleed. There is no focal loss of giang-white matter distinction to suggest acute ischemia, i.e. stroke. Impression: No acute findings. End impression CT C-Spine without contrast: Clinical History: Reason: Pain / Spl. Instructions: / History: Technique: Axial helical images of the cervical spine were obtained without contrast, axial coronal and sagittal reconstruction was performed. Findings: There is no loss of vertebral body stature. There is no prevertebral soft tissue swelling. The vert ebral bodies are well aligned. The C1-C2 relationship is normal. The visualized osseous structures a ppear normal. Evaluation of the central canal is limited without contrast. There is multiple posterio r disc bulges resulting in flattening of the thecal sac. There does not appear to be gross flattening of the cervical cord. There is moderate to marked narrowing of multiple neuroforamen. Impression: No acute findings. Clinical correlation suggested. PQRS Compliance Statement: One or more of the following individualized dose reduction techniques were utilized for this examinat ion: 1. Automated exposure control 2. Adjustment of the mA and/or kV according to patient size 3. Use of iterative reconstruction technique Electronically signed by: Alfredo Grey III, MD (07/28/2020 9:18 PM) [facility]
--- NOTE | 2020-07-28 21:35 | RAD ---
XR CHEST 1V CLINICAL INDICATIONS: Chest pain COMPARISON: July 08, 2016. Findings: There is new finding of elevation of the right hemidiaphragm. No acute lung infiltrate or p leural effusion or pulmonary edema or lung mass or pneumothorax is seen. The heart size, pulmonary v asculature, mediastinum and both tavia are stable. IMPRESSION: New finding of elevation of the right hemidiaphragm. This could be due to splinting or co uld be related to phrenic nerve paresis. Electronically signed by: Bob Vazquez MD (07/28/2020 9:33 PM) [id number]
--- NOTE | 2020-07-28 21:36 | RAD ---
Three-view right knee study Clinical indications: Right knee pain. History of amputation. FINDINGS: A below the knee amputation is evident. No lytic process or acute fracture or dislocation i s seen. IMPRESSION: No acute osseous abnormality. Electronically signed by: Bob Vazquez MD (07/28/2020 9:34 PM) [id number]
[2020-07-28 21:40] LABS: BACTERIA,URINE 0 /HPF (0-FEW); BILIRUBIN,URINE NEG (NEG); CLARITY,URINE CLEAR; COLOR,URINE YELLOW; GLUCOSE,URINE NEG (NEG); NITRITE,URINE NEG (NEG); RBC,URINE 0 /HPF (0-2); SQUAMOUS EPITHELIAL CELL,UR OCC /LPF; UROBILINOGEN,URINE 0.2 mg/dL (0.2 mg/dL); WBC,URINE OCC /HPF (0-4)
[2020-07-28 21:43] LABS: BARBITURATES NEG (NEG); BENZODIAZEPINES NEG (NEG); CANNABINOIDS POS (NEG); COCAINE NEG (NEG); METHADONE NEG (NEG); OPIATES NEG (NEG); PHENCYCLIDINE NEG (NEG)
[2020-07-28 21:44] LABS: AMPHETAMINE/METHAMPHETAMINE POS (NEG)
[2020-07-28 21:58] VITALS: BP 146/99
--- NOTE | 2020-07-28 22:25 | EKG ---
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
== END 2020-07-28 22:50 ==
LOC: ER 19:46
DX: R07.89 Other chest pain (principal); F12.10 Cannabis abuse, uncomplicated; F17.210 Nicotine dependence, cigarettes, uncomplicated; I10 Essential (primary) hypertension; F19.10 Other psychoactive substance abuse, uncomplicated
CPT/HCPCS: 36415; 70450; 71045; 72125; 73562; 80048; 80076; 80307; 81001; 82550; 83690; 83735; 83880; 84443; 84484; 85025; 85379; 93005; 96360; 99285; G0480; J7120